=== PATIENT | female | born 1980 | race African-American/Black ===

== ENCOUNTER → 2018-05-30 | Outpatient (CLI) | payer BC ==
[~2018-05-30] VITALS: Ht 165.1 cm; Wt 75.3 kg
[~2018-05-30] MED LIST: FUROSEMIDE 20MG/2ML VIAL IVP ONE
== END | disposition home or self-care (01) ==
LOC: NM 08:25
PROVIDERS: ATTEND Internal Medicine Nephrology
DX: I70.1 Atherosclerosis of renal artery (principal); N13.30 Unspecified hydronephrosis; I10 Essential (primary) hypertension
CPT/HCPCS: 76770; 78707; A9562; C1893; J1940

== ENCOUNTER → 2018-12-11 | Outpatient (CLI) | payer BC ==
[~2018-12-11] MED LIST changes: -FUROSEMIDE 20MG/2ML VIAL IVP ONE; +IOHEXOL-350 100 ML BOTTLE ONE
== END | disposition home or self-care (01) ==
LOC: CT 09:42
PROVIDERS: ATTEND Internal Medicine Nephrology
DX: I70.1 Atherosclerosis of renal artery (principal); I10 Essential (primary) hypertension
CPT/HCPCS: 74175; Q9967